=== PATIENT | female | born 1955 | race Caucasian/White ===

== ENCOUNTER 2017-06-07 05:49 | Day surgery (SDC) | payer OTHER ==
[2017-06-07] MEDS ORDERED: DIPRIVAN 200 MG/20 ML IV ONE (05:50)
[2017-06-07] MEDS ORDERED: Versed 2 MG/2 ML Injection IV ONE (05:50)
[2017-06-07] MEDS ORDERED: Lactated Ringers 1,000 ML IV SCH (06:30)
--- NOTE | 2017-06-07 09:05 | OP ---
SURGERY DATE/TIME: 06/07/2017 0656 PREOPERATIVE DIAGNOSIS: Screening exam. POSTOPERATIVE DIAGNOSIS: Large sessile polyp in the sigmoid colon at 20 cm depth insertion. PROCEDURE: Colonoscopy with polypectomy. SURGEON: Dr. John. ANESTHESIA: MAC. Medications given by anesthesia department. HISTORY: The patient is a 61 year-old white female presenting now for screening colonoscopy. The patient was appraised of the risks of the procedure including the risk of perforation, phlebitis, untoward reaction to medication, bleeding and missed lesions. The patient verbalized her understanding and desired to have the procedure performed. DESCRIPTION OF PROCEDURE: The patient was given the medications by the anesthesia department. She had continuous pulse oximetry, ECG monitoring, intermittent blood pressure monitoring and tidal CO2 monitoring during the examination. She was placed in the left lateral decubitus position. A digital rectal examination was performed and revealed normal anal sphincter tone and no masses. The flexible Olympus pediatric colonoscope was used to intubate the rectum. A view of the colon was developed sequentially to the cecum. Upon insertion and withdrawal, there was noted a large sessile polyp at 20 cm depth insertion this was removed using multiple passes of hot polypectomy snare and hot biopsy forceps to destroy the lesion. Upon insertion and withdrawal including a retroflex view in the rectum, no other mucosal lesions being encountered the scope was removed from the patient who tolerated the procedure well and was sent back to OP recovery in good condition.
[2017-06-07 09:08] VITALS: O2SAT 96
[2017-06-07 09:22] VITALS: BP 113/72; PULSE 67
== END 2017-06-07 08:55 | disposition home or self-care (01) ==
LOC: SDC 05:49
PROVIDERS: ATTEND Family Medicine
PROC: 0DBN8ZX Excision of Sigmoid Colon, Via Natural or Artificial Opening Endoscopic, Diagnostic (ICD-10-PCS; principal; 2017-06-07)
DX: K63.5 Polyp of colon (principal)
CPT/HCPCS: 88305; J2250; J2704

== ENCOUNTER 2019-11-10 06:49 | Day surgery (SDC) | payer OTHER ==
[~2019-11-10 06:49] MED LIST: Lactated Ringers 1,000 ML IV ONE; Lactated Ringers 1,000 ML IV SCH
[2019-11-10] MEDS ORDERED: DIPRIVAN 200 MG/20 ML IV ONE ×2 (07:57→08:12)
[2019-11-10] MEDS ORDERED: Ketamine HCl 50 MG/ML ONE (07:57)
--- NOTE | 2019-11-10 09:20 | OP ---
SURGERY DATE/TIME: 11/10/2019 0806 PREOPERATIVE DIAGNOSIS: History of tubulovillous adenoma. POSTOPERATIVE DIAGNOSIS: Small polyp in the transverse colon and scattered diverticula. PROCEDURE: Colonoscopy with cold forceps biopsy. SURGEON: Dr. John. ANESTHESIA: MAC. Medications given by anesthesia department. HISTORY: The patient is a 63 year old white female who had a large tubulovillous adenoma removed a little over two years ago. The patient now represents for surveillance examination. The patient was reappraised of the risks of the procedure including the risk of perforation, phlebitis, untoward reaction to medication, bleeding and missed lesions. The patient verbalized her understanding and desired to have the procedure performed. DESCRIPTION OF PROCEDURE: The patient was given the medications by the anesthesia department. She had continuous pulse oximetry, ECG monitoring, intermittent blood pressure monitoring and tidal CO2 monitoring during the examination. She was placed in the left lateral decubitus position. A digital rectal examination was performed and revealed normal anal sphincter tone and no masses. The flexible Olympus pediatric colonoscope was used to intubate the rectum. A view of the colon was developed sequentially to the cecum. Upon insertion and withdrawal was noted a small polyp in the mid transverse colon which was removed using polypectomy, several passes of the cold forceps to destroy the lesion. Upon insertion and withdrawal including a retroflex view in the rectum was otherwise noted a few scattered diverticula but no other mucosal lesions were encountered. The scope was removed from the patient who tolerated the procedure well and was sent back to OP recovery in good condition. The prep was noted to be fair to good.
[2019-11-10 09:33] VITALS: BP 126/91; PULSE 80; O2SAT 96
== END 2019-11-10 09:35 | disposition home or self-care (01) ==
LOC: SDC 06:49
PROVIDERS: ATTEND Family Medicine
DX: Z09 Encounter for follow-up examination after completed treatment for conditions other than malignant neoplasm (principal); Z86.010 Personal history of colon polyps; K57.30 Diverticulosis of large intestine without perforation or abscess without bleeding; D12.3 Benign neoplasm of transverse colon; E11.9 Type 2 diabetes mellitus without complications; Z79.899 Other long term (current) drug therapy
CPT/HCPCS: 82962; J2704